=== PATIENT | male | born 1970 | race Caucasian/White ===

== ENCOUNTER 2019-03-02 00:10 | Emergency (ER) | payer SELFPAY ==
[~2019-03-02] VITALS: Ht 165.1 cm; Wt 99.8 kg
[2019-03-02 00:19] VITALS: Ht 165.1 cm; Wt 99.8 kg
[2019-03-02 01:13] LABS: BASOPHIL % 0.4 % (0-2); PLATELET COUNT 191 x10^3mcL (130-400); RED CELL DISTRIBUTION WIDTH 13.3 % (11.5-14.5)
[2019-03-02 01:32] LABS: CALCIUM 9.4 mg/dL (8.5-10.1); CARBON DIOXIDE 26.9 mmol/L (21-32); CHLORIDE SERUM 107 mmol/L (98-107); GFR1 > 60 mL/min; GLUCOSE SERUM 112 mg/dL (74-106); POTASSIUM SERUM 3.8 mmol/L (3.5-5.1); SODIUM SERUM 144 mmol/L (136-145)
[2019-03-02 01:37] LABS: ALBUMIN 3.9 g/dL (3.4-5.0); ALKALINE PHOSPHATASE 88 U/L (46-116); ALT/SGPT 45 U/L (16-63); AST/SGOT 24 U/L (15-37); LIPASE 202 IU/L (73-393); TOTAL PROTEIN, SERUM 6.9 g/dL (6.4-8.2)
[2019-03-02 03:12] LABS: UA SPECIFIC GRAVITY >=1.030 (1.005-1.035); microscopic required? YES; urine erythrocyte 1+ (NEGATIVE)
[2019-03-02 03:36] VITALS: BP 143/80
== END 2019-03-02 03:36 | disposition home or self-care (01) ==
LOC: ED 00:10
PROVIDERS: Emergency Medicine
DX: K80.20 Calculus of gallbladder without cholecystitis without obstruction (principal)
CPT/HCPCS: J1885; J2405; J7030